=== PATIENT | female | born 1950 ===

== ENCOUNTER 2025-01-17 06:33 | Day surgery (SDC) | payer OTHER, SELFPAY | END 2025-01-17 13:47 | disposition home or self-care (01) | LOC: GI 06:33 | PROVIDERS: ATTENDING PHYSICIAN Internal Medicine Gastroenterology | DX: R93.3 Abnormal findings on diagnostic imaging of other parts of digestive tract (principal); K31.7 Polyp of stomach and duodenum; K31.89 Other diseases of stomach and duodenum | CPT/HCPCS: 43239; 88305 ==

== ENCOUNTER 2025-01-28 06:11 | Day surgery (SDC) | payer OTHER, SELFPAY ==
[2025-01-28 08:40] VITALS: BMI 15.2
[2025-01-28 08:45] VITALS: BP 123/66
[2025-01-28 08:58] VITALS: BMI 15.2
[2025-01-28 11:45] VITALS: BP 131/83
[2025-01-28 12:01] VITALS: BP 143/89
[2025-01-28 12:15] VITALS: BP 149/84
== END 2025-01-28 12:25 | disposition home or self-care (01) ==
LOC: SDS 06:11
PROVIDERS: ATTENDING PHYSICIAN Internal Medicine Gastroenterology
DX: R59.0 Localized enlarged lymph nodes (principal); R93.2 Abnormal findings on diagnostic imaging of liver and biliary tract; Z85.3 Personal history of malignant neoplasm of breast
CPT/HCPCS: 43242; 88172; 88173; 88177; 88305; 88312